=== PATIENT | male | born 1995 | race Caucasian/White ===

== ENCOUNTER 2019-08-29 19:31 | Emergency (ER) | payer SELFPAY ==
[2019-08-29 19:36] VITALS: BP 119/75; PULSE 106; RESP 16; TEMP 36.4; O2SAT 99; BMI 22.4
--- NOTE | 2019-08-29 19:56 | W.ED.SKABFB ---
HPI - Skin/Abscess/Foreign Bdy General: Chief complaint: Extremity Problem,Nontraumatic Stated complaint: foot pain Time Seen by Provider: 08/29/19 19:43 Source: patient Mode of arrival: ambulatory Limitations: no limitations History of Present Illness: HPI narrative: Patient is a 24-year-old male who presents to ED today with complaints of a rash to his bilateral toes. Patient and significant other tell me that he wears socks almost 05/10. He states when he removes his socks they are often soaked in sweat. Patient tells me he has thought he has had athlete's foot for a while now. Recently, while in the shower, he took a scrub brush that he had used to scrub his shoes that admittedly had stiff leg operator as well as bleach on it, and used it to scrub his feet. He has been using anti-fungal cream but only for the past two days and significant other states he slathered it on and then immediately put socks on. Again they state there hardly is a period where patient doesn't wear socks-he even wears them throughout the night. Patient states rash has recently became painful. He has recently noted sloughing skin and blistering. No other lesions anywhere on his body. No systemic complaints. MD complaint: rash Onset (ago): week(s) (worsening over the past few days ) Location: L foot and R foot Relieving factors: none Exacerbating factors: none Associated symptoms: Reports no associated symptoms; Deny chills, fever(s), nausea or vomiting Review of Systems General: Reports: 10 or more systems reviewed and unremarkable except in HPI and below Const: Denies: fever(s), chills, body aches, fatigue or malaise Eyes: Denies: change in vision or eye discharge ENMT: Denies: odynophagia, mouth pain, swelling of lips/tongue or oral sores Card: Denies: chest pain Resp: Denies: dyspnea GI: Denies: abdominal pain, nausea or vomiting Musc: Denies: neck pain, back pain or extremity pain Skin/Breast: Reports: rash Neuro: Denies: headache(s), numbness in extremities, weakness in extremities or sensory changes PFS ED PFSH: Social History Smoking and tobacco status: current every day smoker Physical Exam Const: COMMON NORMALS: no acute distress, average body habitus, patient oriented x3, no limitations, healthy appearing, alert and well nourished Resp: COMMON NORMALS: normal respiratory effort Extremity: GENERAL: Yes normal exam except as noted (see skin assessment ) Neuro: COMMON NORMALS: patient oriented x3, moves all extremities, no focal motor deficits, no sensory deficits noted and gait normal SENSORIUM/ORIENTATION: Yes alert Skin: OTHER: pt with what appears to be ruptured blisters/bulla throughout bilateral toes; areas are currently slathered and neosporin ointment; there is interdigital maceration present; no obvious cellulitis; no streaking; apart from the toes there is no other portions of the feet involved Course Vital Signs: Vital signs: Vital Signs Temperature 97.5 F L 08/29/19 19:36 Pulse Rate 106 H 08/29/19 19:36 Respiratory Rate 16 08/29/19 19:36 Blood Pressure 119/75 08/29/19 19:36 Pulse Oximetry 99 08/29/19 19:36 MDM - Skin/Abscess/Foreign Bdy MDM Narrative: Medical decision making narrative: pt most likely with ulcerative tinea pedis; other DDx include dyshidrotic ezema and palmoplantar pustulosis; will go ahead and place on abx since rash is acutely worsening and he most likely introduced a secondary bacterial infection with the recent skin sloughing and him scrubbing with dirty kitchen scrub brush; will give him ketoconazole shampoo to use in shower and clotrimazole cream twice daily; discussed at length him taking a break from wearing socks 05/10 and keeping feet as dry as possible Discharge Plan Discharge Patient Disposition: Home, Self-Care Clinical Impression: Tinea pedis of both feet Condition: Stable Prescriptions: New Keflex 500 mg capsule 500 mg PO Q6H 7 Days Qty: 28 RF: 0 ketoconazole 2 % shampoo 1 applic TOPICAL DAILY Qty: 120 RF: 0 clotrimazole 1 % cream 1 applic TOPICAL BID 28 Days Qty: 28 RF: 0 Discharge Orders: Discharge Order (Routine); Ordered 08/29/19 Ordered By: Hellen Paul Patient Instructions: Tinea Pedis (ED) Activity Restrictions/Additional Instructions: AVOID FEET GETTING WET, SWEATY, OR HOT. KEEP THEM CLEAN, DRY, AND OPEN TO AIR MUCH POSSIBLE. 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
== END 2019-08-29 20:13 | disposition home or self-care (01) ==
PROVIDERS: Emergency Provider Physician Assistant
DX: B35.3 Tinea pedis (principal); F17.210 Nicotine dependence, cigarettes, uncomplicated
CPT/HCPCS: 12345; 99281

== ENCOUNTER 2020-12-25 13:33 | Emergency (ER) | payer SELFPAY ==
[2020-12-25 13:55] VITALS: BP 116/72; PULSE 80; RESP 15; TEMP 36.9; O2SAT 97; BMI 27.2
--- NOTE | 2020-12-25 14:15 | W.ED.RECABL ---
HPI - Recheck/Abnormal Lab/Rx General: Chief Complaint: Recheck/Abnormal Lab/Rx Stated Complaint: HERE VIA SUPERVISOR SCRAP PREPARATION:NEEDS CLEAN LAB RESULTS Time Seen by Provider: 12/25/20 14:03 Source: patient Mode of arrival: ambulatory Limitations: no limitations History of Present Illness: HPI narrative: Patient is a 25-year-old male who presents to ED today requesting a blood drug screen. Patient tells me he is on parole following drug charges from several years ago. He states he wears sweat patches and states he was around some individuals who were smoking marijuana that caused to sweat patch to test positive. Patient adamantly denies any form of drug use and is working hard to meet all criteria for his parole so he is not sent to care home. Patient states he had a urine drug screen performed at [facility] ED that came back negative but states his horticultural technical officer recommended a blood drug screen. MD complaint: other (encounter for drug screening ) Associated symptoms: none Review of Systems General: Reports: Other (pt has no physical complaints at this time) [facility] ED PFSH: Social History Smoking and tobacco status: current every day smoker Physical Exam Const: COMMON NORMALS: no acute distress, average body habitus, patient oriented x3, no limitations, healthy appearing, alert and well nourished Neuro: COMMON NORMALS: patient oriented x3 SENSORIUM/ORIENTATION: Yes alert Psych: COMMON NORMALS: mental status grossly normal, Normal thought process present, cooperative, normal affect, speech normal and activity/motor behavior normal APPEARANCE: Yes grossly normal ATTITUDE: Yes calm ACTIVITY/MOTOR BEHAVIOR: Yes appropriate eye contact SPEECH: Yes normal speech MOOD & AFFECT: Yes euthymic mood THOUGHT PROCESS: Normal thought process present THOUGHT CONTENT: Yes Normal thought content present ATTENTION/CONCENTRATION: Yes attention grossly intact and Yes concentration grossly intact MEMORY/COGNITION: Yes memory grossly intact and Yes cognition grossly intact INSIGHT: Good insight present (Psych) JUDGEMENT: Good judgement present (Psych) Course Vital Signs: Vital signs: Vital Signs Temperature 98.5 F 12/25/20 13:55 Pulse Rate 80 12/25/20 13:55 Respiratory Rate 15 12/25/20 13:55 Blood Pressure 116/72 12/25/20 13:55 Pulse Oximetry 97 12/25/20 13:55 MDM - Recheck/Abnormal Lab/Rx MDM Narrative: Medical decision making narrative: Blood drug screen obtained-send out. Patient can call medical records for results. 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
== END 2020-12-25 14:33 | disposition home or self-care (01) ==
PROVIDERS: Emergency Provider Physician Assistant
DX: Z02.83 Encounter for blood-alcohol and blood-drug test (principal); F17.210 Nicotine dependence, cigarettes, uncomplicated
CPT/HCPCS: 36415; 80307; 99281

== ENCOUNTER → 2024-09-20 17:47 | Outpatient (BNVA) | payer SELFPAY | PROVIDERS: Visit Provider Family Medicine | DX: R35.0 Frequency of micturition (principal) | CPT/HCPCS: 81000 ==

== ENCOUNTER → 2024-09-28 15:36 | Outpatient (BNVA) | payer MEDICAID, SELFPAY | DX: R30.0 Dysuria (principal) | CPT/HCPCS: 80053; 81000; 85025; 87086; 87491; 87591; G0103 ==